=== PATIENT | female | born 1975 | race Caucasian/White ===

== ENCOUNTER 2017-07-09 10:38 | Emergency (ER) | payer MEDICAID, OTHER ==
[~2017-07-09] VITALS: Ht 162.6 cm; Wt 100.0 kg
[2017-07-09 10:41] VITALS: Ht 162.6 cm; Wt 100.0 kg
[2017-07-09] MEDS ORDERED: NAPR-260 PO (11:03)
[2017-07-09] MEDS ORDERED: BENZ100C70 PO (11:03)
--- NOTE | 2017-07-09 13:22 | ERD ---
ER Documentation Chief Complaint Date/Time DATE: 07/09/17 TIME: 13:12 Chief Complaint pt bib self with c/o sore throat and cough x 3 wks, mask given @ triage HPI 41 yr old female complaint of sore throat x 3 weeks. Patient has had dry cough and tactile fevers. Has pain with swallowing. Denies headaches. Denies sick contacts. Denies runny nose. Denies medical problems. NKDA. Denies surgeries. Denies smoking. ROS All systems reviewed and are negative except as per history of present illness. Medications Home Meds Active Scripts Naproxen* (Naprosyn*) 500 Mg Tablet, 500 MG PO BID Y for PAIN AND/OR INFLAMMATION, #30 TAB Prov:LISA PEDRAZA PA-C 07/09/17 Benzonatate* (Tessalon Perle*) 100 Mg Capsule, 100 MG PO Q8H Y for COUGH, #30 CAP Prov:LISA PEDRAZA PA-C 07/09/17 Allergies Allergies: Coded Allergies: No Known Allergy (Unverified , 04/26/14) PMhx/Soc Medical and Surgical Hx: pt denies Medical Hx, pt denies Surgical Hx Hx Alcohol Use: No Hx Substance Use: No Hx Tobacco Use: No Physical Exam Vitals Vital Signs Date Time Temp Pulse Resp B/P Pulse Ox O2 Delivery O2 Flow Rate FiO2 07/09/17 10:41 98.3 62 18 117/61 100 Physical Exam GENERAL: The patient is well-appearing, well-nourished, in no acute distress HEENT: Atraumatic. Conjunctivae are pink. Pupils equal, round, and reactive to light. There is no scleral icterus. Tympanic membranes clear bilaterally. Oropharynx clear. No nystagmus or photophobia. NECK: C-spine is soft and supple. There is no meningismus. There is no cervical lymphadenopathy. No JVD. No bruits. No goiter. CHEST: Clear to auscultation bilaterally. There are no rales, wheezes or rhonchi. HEART: Regular rate and rhythm. No murmurs, clicks, rubs or gallops. No S3 or S4. Procedures/MDM MDM: 41 yr old female complaining of sore throat x 3 weeks. I have low suspicion for peritonsillar or retropharyngeal abscess. I have low suspicion for bacterial HENT infection. Patient likely has viral infection and I recommended pain medication. Patient was told to follow-up with primary care physician within 1-2 days for close evaluation. Patient is told symptoms change or worsen to return the ER. All questions answered at the time of discharge. Departure Diagnosis: Primary Impression: Sore throat Condition: Stable Patient Instructions: Pharyngitis, Viral Referrals: [facility] YOU HAVE RECEIVED A MEDICAL SCREENING EXAM AND THE RESULTS INDICATE THAT YOU DO NOT HAVE A CONDITION THAT REQUIRES URGENT TREATMENT IN THE EMERGENCY DEPARTMENT. FURTHER EVALUATION AND TREATMENT OF YOUR CONDITION CAN WAIT UNTIL YOU ARE SEEN IN YOUR DOCTORS OFFICE WITHIN THE NEXT 1-2 DAYS. IT IS YOUR RESPONSIBILITY TO MAKE AN APPOINTMENT FOR FOLOW-UP CARE. IF YOU HAVE A PRIMARY DOCTOR --you should call your primary doctor and schedule an appointment IF YOU DO NOT HAVE A PRIMARY DOCTOR YOU CAN CALL OUR PHYSICIAN REFERRAL HOTLINE AT IF YOU CAN NOT AFFORD TO SEE A PHYSICIAN YOU CAN CHOSE FROM THE FOLLOWING [facility] [place] [address] [facility] [address] [facility] [facility] [address] [facility] [address] [facility] [address] [facility]. [facility]. [address] Additional Instructions: FOLLOW UP WITH YOUR PRIMARY CARE PHYSICIAN TOMORROW.Return to this facility if you are not improving as expected. LISA PEDRAZA PA-C Jul 09, 2017 13:22
== END 2017-07-09 11:34 | disposition home or self-care (01) ==
LOC: FTE 10:38
DX: J02.9 Acute pharyngitis, unspecified (principal)
CPT/HCPCS: 99283

== ENCOUNTER 2017-07-11 19:12 | Emergency (ER) | payer OTHER ==
[~2017-07-11] VITALS: Ht 165.1 cm; Wt 97.2 kg
[~2017-07-11 19:12] MED LIST: BENZ100C70 PO; NAPR-260 PO
[2017-07-11 19:19] VITALS: Ht 165.1 cm; Wt 97.2 kg
--- NOTE | 2017-07-11 20:59 | RADRPT ---
PROCEDURE: Chest x-ray CLINICAL INDICATION: Cough TECHNIQUE: Chest single view COMPARISON: 11/19/2013 FINDINGS: The heart is normal in size. The pulmonary vessels are normal in caliber. There is stable calcifie d granuloma in the left upper lung. Lungs otherwise clear. The costophrenic angles are sharp. The visualized bony thorax is unremarkable. IMPRESSION: No acute cardiopulmonary disease. Old granulomatous disease RPTAT: HH .Johnathan Galvan MD, MD Date Time Electronically viewed and signed by .Johnathan Galvan MD, on 07/11/2017 20:59 .W/
[2017-07-11] MEDS ORDERED: GUAI118L22 PO (21:31)
--- NOTE | 2017-07-11 21:42 | ERD ---
ER Documentation Chief Complaint Date/Time DATE: 07/11/17 TIME: 21:35 Chief Complaint cough x 3 weeks, eye redness right eye HPI This is a 41 year old female presents to ER with cough 3 weeks and redness to right eye. Patient was seen here 3 days ago for sore throat and cough. Patient describes cough is dry nonproductive. Denies fevers at home. No difficulty breathing or shortness of breath. No difficulty swallowing or drooling. No nausea, vomiting or diarrhea. No abdominal pain. No dizziness, headache or weakness. Patient also complains of right eye redness and clear drainage. No purulent discharge. No blurry vision or change in vision. No loss of vision. ROS All systems reviewed and are negative except as per history of present illness. Medications Home Meds Active Scripts Erythromycin (Erythromycin Opth) 3.5 Gm Oint..gm., 1 APPLIC RIGHT EYE QID, #1 Prov:ANIYA YANCEY NP 07/11/17 Guaifenesin/Codeine Phosphate (CHERATUSSIN AC SYRUP) 118 Ml Liquid, 10 ML PO Q6H Y for COUGH, #118 ML Prov:ANIYA YANCEY NP 07/11/17 Naproxen* (Naprosyn*) 500 Mg Tablet, 500 MG PO BID Y for PAIN AND/OR INFLAMMATION, #30 TAB Prov:LIAS PEDRAZA PA-C 07/09/17 Benzonatate* (Tessalon Perle*) 100 Mg Capsule, 100 MG PO Q8H Y for COUGH, #30 CAP Prov:LISA PEDRAZA PA-C 07/09/17 Allergies Allergies: Coded Allergies: No Known Allergy (Unverified , 04/26/14) PMhx/Soc Medical and Surgical Hx: pt denies Medical Hx, pt denies Surgical Hx Hx Alcohol Use: No Hx Substance Use: No Hx Tobacco Use: No Smoking Status: Never smoker Physical Exam Vitals Vital Signs Date Time Temp Pulse Resp B/P Pulse Ox O2 Delivery O2 Flow Rate FiO2 07/11/17 22:25 91 20 120/72 99 Room Air 07/11/17 19:19 98.2 99 20 133/76 99 Physical Exam Const: No acute distress, alert Head: Atraumatic Eyes: Right eye erythematous conjunctiva, normal conjunctiva to left eye. No drainage. PERRL, EOMs intact ENT: Normal External Ears, Nose and Mouth. TMs normal bilaterally. No erythema or exudates posterior pharynx. No peritonsillar abscess. Non-kissing tonsils Neck: Full range of motion..~ No meningismus. Resp: Clear to auscultation bilaterally. No wheezing, rhonchi or crackles. No stridor or labored breathing. Patient is talking in complete sentences per Cardio: Regular rate and rhythm, no murmurs Abd: Soft, non tender, non distended. Normal bowel sounds Skin: No petechiae or rashes Back: No midline or flank tenderness Ext: No cyanosis, or edema Neur: Awake and alert Psych: Normal Mood and Affect Procedures/MDM [place] [address] Radiology Main Line: [phone] DIAGNOSTIC IMAGING REPORT Patient: SOREN ALVAREZ : 1975 Age: 41 Sex: F MR #: [id number] DOS: 07/11/172000 Ordering MD: ANIYA YANCEY NP Location: E Room/Bed: PROCEDURE: Chest x-ray CLINICAL INDICATION: Cough TECHNIQUE: Chest single view COMPARISON: 11/19/2013 FINDINGS: The heart is normal in size. The pulmonary vessels are normal in caliber. There is stable calcified granuloma in the left upper lung. Lungs otherwise clear. The costophrenic angles are sharp. The visualized bony thorax is unremarkable. IMPRESSION: No acute cardiopulmonary disease. Old granulomatous disease MDM: This is a 41-year-old female presenting to emergency department for cough 3 weeks and right eye redness 2 days. Cough is dry nonproductive. No fevers at home. Patient is afebrile upon arrival to ED. Vital signs are stable. No signs or symptoms of respiratory distress. Oxygen saturation 99% on room air. Chest x-ray reviewed by radiologist as no acute cardiopulmonary disease. Old granulomatous disease. Patient appears stable and safe for discharge home. Low suspicion for pneumonia, pleural effusion, pneumothorax or acute [place]. Differential diagnosis includes but not limited to URI, conjunctivitis, influenza, otitis media, otitis externa, asthma exacerbation, croup, bronchitis , bronchiolitis and costochondritis. Patient is appropriate for outpatient management and will be given prescription for Cheratussin AC syrup and erythromycin ointment. Instructed patient to follow-up with primary care provider in the next 2-3 days for reassessment and additional management. Return to ED for any high fever, chest pain, difficulty breathing, shortness breath, wheezing, vomiting, diarrhea, abdominal pain or any new or worsening symptoms. Patient verbalizes understanding. All questions answered at discharge. Georgian translation used during this encounter. Departure Diagnosis: Primary Impression: URI (upper respiratory infection) URI type: unspecified viral URI Qualified Code: J06.9 - Viral upper respiratory tract infection Additional Impression: Conjunctivitis Conjunctivitis type: acute Acute conjunctivitis type: unspecified Laterality: right Qualified Code: H10.31 - Acute conjunctivitis of right eye , unspecified acute conjunctivitis type Condition: Stable Patient Instructions: Uri, Viral, No Abx (Adult) Additional Instructions: Llame al doctor MAANA y julainna dutch GERDA PARA DENTRO DE 2-3 BUTTS.Dgale a la secretaria que nosotros le instruimos hacer esta gerda.Avise o llame si rico condicin se empeora antes de la gerda. Regresa aqui si peor o no mejor. Regresar a ED por fiebre chapin, dolor en el pecho, dificultad para respirar, respiracin entrecortada, sibilancias, vmitos, diarrea, dolor abdominal o cualquier sntoma nuevo o que empeora. ANIYA YANCEY NP Jul 11, 2017 21:42
[2017-07-11] MEDS ORDERED: ERYT1OIN6 RIGHT EYE (21:43)
[2017-07-11 22:25] VITALS: BP 120/72; PULSE 91; RESP 20
== END 2017-07-11 22:25 | disposition home or self-care (01) ==
LOC: FTE 19:12
DX: J06.9 Acute upper respiratory infection, unspecified (principal); H10.31 Unspecified acute conjunctivitis, right eye
CPT/HCPCS: 71010; Z7502